=== PATIENT | male | born 1975 | race Caucasian/White ===

== ENCOUNTER 2018-05-12 22:53 | Emergency (ER) | payer SELFPAY ==
[~2018-05-12] VITALS: Ht 175.3 cm; Wt 74.8 kg
[2018-05-12 22:57] VITALS: BP 154/94
[2018-05-13 00:41] VITALS: BP_SYST 150; BP_DIAS 90; BP_DIAS 92
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
== END 2018-05-13 00:44 ==
LOC: EMR 23:20
DX: S01.81XA Laceration without foreign body of other part of head, initial encounter (principal); S09.90XA Unspecified injury of head, initial encounter; Y08.89XA Assault by other specified means, initial encounter; Y92.9 Unspecified place or not applicable; Z02.89 Encounter for other administrative examinations
CPT/HCPCS: 70450; 70486; 99284